=== PATIENT | female | born 1990 | race Caucasian/White ===

== ENCOUNTER 2021-02-19 10:12 | Emergency (ER) | payer MEDICAID, SELFPAY ==
[2021-02-19 10:13] VITALS: BP 146/74; PULSE 70; RESP 18; TEMP 36.6; O2SAT 99; BMI 31.4
--- NOTE | 2021-02-19 10:42 | CT_ITS ---
STUDY: CT BRAIN WITHOUT CONTRAST REASON FOR EXAM: Female, 30 years old. Dizziness RADIATION DOSAGE (If Supplied By Facility): CTDIvol = ( 44.99 ) mGy, DLP = ( 745.49 ) mGycm TECHNIQUE: Transaxial CT imaging of the brain was performed without administration of intravenous contrast material. Individualized dose optimization techniques were used for this CT. COMPARISON: No relevant priors. FINDINGS: Normal soft tissue structures. Normal calvarium. Normal size ventricles and extra-axial spaces for the patient''s age. Normal white matter tracts of the cerebral hemispheres. Normal basal ganglia and thalami. Normal brainstem. Normal cerebellum. There is no intracranial hemorrhage. There are no findings of an acute ischemic infarction. There is opacification of the right sphenoid sinus. Partial opacification of the posterior aspect of the right ethmoid sinus. CT/Brain/Head without Contrast IMPRESSION: Opacification of the right sphenoid sinus with partial opacification of the posterior aspect of the right ethmoid sinus. Electronically Signed: Bill Isaacs MD at 11:12 EDT , Service support ,
--- NOTE | 2021-02-19 10:44 | EX.ED.DYSGE1 ---
HPI History of Present Illness Chief Complaint: Dizziness Informant: patient Onset/Context/Timing Onset: Days Context: Gradual Onset Timing: Intermittent Current Severity: Mild Maximum Severity: Mild Narrative Narrative: 30-year-old female gave about 3 months ago. Uncomplicated vaginal delivery at 39 weeks. She has no past medical history. She has had a prior appendectomy, ACL repair and arm fracture repair. Both she and the baby have been doing well. She is a mother of 4 children home all 5 years or less. States she just feels tired and has been having some dizziness. Because of more lightheadedness. Not vertiginous nor any room spinning. No significant headache. No head trauma. Prior similar symptoms: No Recent Illness/Hospitalization: No PFSH PFSH Home Medications PNV cmb#95-ferrous fumarate-FA [] 1 tab PO DAILY 02/19/21 [History Last Taken Unknown] Allergy/AdvReac Type Severity Reaction Status Date / Time No Known Allergies Allergy Verified 02/19/21 10:15 Social History Smoking Status: Never smoker ROS ROS ED ROS Narrative Denies any recent illness. Review of Systems ROS Unobtainable: Denies due to encephalopathy Constitutional Constitutional ED: Denies chills or fever(s) Eyes Eyes: Denies blurry vision, change in vision or diplopia ENT ENT ED: Denies ear pain Cardiovascular Cardiovascular: Denies chest pain or palpitations Respiratory/Chest Respiratory/Chest: Denies cough or dyspnea Gastrointestinal Gastrointestinal: Denies abdominal pain, diarrhea, nausea or vomiting Genitourinary Genitourinary ED: Denies dysuria Musculoskeletal Musculoskeletal: Denies myalgias Integumentary Denies rash Neurologic Neurologic: Denies headache(s) Psychiatric Psychiatric: Denies depression Endocrine Endocrinology: Denies polyuria Allergic/Immunologic Allergic/Immunologic ED: Denies urticaria EXAM Physical Exam Narrative Exam Narrative: Young healthy female no acute distress. As a baby with her. Patient does not appear ill. Vital signs are stable and afebrile. HEENT exam normal. Moist mucous membranes. Normal speech. No facial droop. No trauma. TMs normal. Neck nontender no lymphadenopathy. Lungs clear to auscultation bilaterally. Heart regular rate and rhythm no murmur rate about 70. Abdomen soft nontender normal bowel sounds no peritoneal signs. Moving all 4 extremities. Neurovascular intact. No edema. Neurologically she is awake and alert with no focal motor or sensory deficits. NIH score is 0. 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 Fingertip to nose within normal limits bilaterally. She is able to do rapid hand movements equally and symmetrically normally. Dorsi and plantar flexion intact. She can raise either arm or either leg for more than 3 seconds without any drift. There is no signs of weakness. She has a negative Hallpike maneuver. Const Vital Signs: 02/19/21 10:13 02/19/21 10:33 Temperature 97.9 F Temperature Source Temporal Pulse Rate 70 Respiratory Rate 18 Respiratory Effort Normal Non-Labored Respiratory Pattern Normal Blood Pressure 146/74 H Blood Pressure Mean 98 Pulse Ox 99 Oxygen Delivery Method Room Air Positive well nourished and well developed General Appearance ED: well developed; Negative for pallor HEENT Reports TM's clear and moist mucous membranes Negative for trauma or tenderness Tympanic Membrane ED: Yes TM's clear Eyes PERRL and EOMs intact bilaterally General Eye ED: Negative for pale conjunctiva or scleral icterus Neck no lymphadenopathy, supple and no JVD General: Negative for tenderness Chest Wall inspection of chest normal and palpation of chest normal Resp normal respiratory effort and clear to auscultation bilaterally Cardio regular rate, regular rhythm, S1 normal heart sound, S2 normal heart sound and no murmurs GI normal to inspection, nondistended, normoactive bowel sounds, non-tender and non-distended Auscultation: normoactive bowel sounds Palpation: soft Back/Spine no CVA tenderness Extremity normal to inspection General Extremety ED: Negative for edema or tenderness General Extremity: Negative for edema Neuro oriented x3, CN's II-XII intact bilaterally and no sensory deficits noted Neuro Narrative: Completely normal neurologic exam. NIH score 0. Sensorium / Orientation: alert; Negative for orientation impaired, lethargic or stuporous Sensory Exam: No sensory level loss detected Motor Exam: strength 5/5 throughout; Negative for general weakness or strength abnormal Psych mental status grossly normal Skin no rashes or lesions noted, no wounds and skin turgor normal General Skin Exam: elasticity normal; Negative for jaundice or pallor Rashes: No rashes noted MDM MDM MDM Narrative Medical decision making narrative: 30-year-old female complaining some dizziness. Status post delivery 2 to 3 months ago. Uncomplicated. Clinically looks well. Has a normal exam. Thought she may have had some subjective weakness in her left arm which objectively she has a completely normal neurologic exam and no weakness. Will obtain a CAT scan of her brain. I do not think she needs any labs. After an unremarkable CAT scan and a normal repeat exam at 11:25 AM the patient be discharged home with outpatient follow-up. Radiography Diagnostic Testing: Radiology Impression Brain CT 02/19/21 10:42 IMPRESSION: Opacification of the right sphenoid sinus with partial opacification of the posterior aspect of the right ethmoid sinus. Electronically Signed: Bill Isaacs MD at 11:12 EDT , Service support , I reviewed the CAT scan and radiologist interpretation. Nothing concerning imaging. Repeat exam of the patient at 11:25 AM again was normal. She is a completely normal neurologic exam. Discharge Plan Triage Chief Complaint: Dizziness ED Provider: Woodrow Rowland Dx/Rx/DC Orders Clinical Impression: Dizziness Instructions: ED Dizziness, Uncertain Cause Prescriptions: No Action PNV cmb#95-ferrous fumarate-FA [] 28 mg iron- 800 mcg Tablet 1 tab PO DAILY RF: 0 Primary Care Provider: Jean-Paul Conde NP Referrals: Jean-Paul Conde CONSTRUCTION SAFETY MANAGER, CONSTRUCTION SAFETY MANAGER-C [Primary Care Provider] - 1 Week if not improving Activity Restrictions/Additional Instructions: Your exam is normal. Your CAT scan is unremarkable. Make sure you are getting plenty of rest. Follow-up with your primary care provider if not improving. Disposition Disposition: Home, Self Care
== END 2021-02-19 11:37 | disposition home or self-care (01) ==
PROVIDERS: Emergency Provider Emergency Medicine; PCP Nurse Practitioner Family
DX: R42 Dizziness and giddiness (principal)
CPT/HCPCS: 70450; 99282

== ENCOUNTER 2021-02-23 11:04 | Emergency (ER) | payer MEDICAID, SELFPAY ==
[2021-02-23 11:06] VITALS: BP 136/76; PULSE 76; RESP 16; TEMP 36.4; O2SAT 95; BMI 30.2
--- NOTE | 2021-02-23 11:53 | EKG12_ITS ---
Test Reason : DIZZINESS Blood Pressure : / mmHG Vent. Rate : 067 BPM Atrial Rate : 067 BPM P-R Int : 142 ms QRS Dur : 098 ms QT Int : 402 ms P-R-T Axes : 036 005 029 degrees QTc Int : 424 ms Normal sinus rhythm with sinus arrhythmia Normal ECG Confirmed by ALEX VALDIVIA, BUSHRA ([id number]), state editor MILE RODRIGES ([id number]) on 02/24/2021 2:21:31 PM Referred By: CARLITOS Confirmed By:BUSHRA JOHNSON MD
--- NOTE | 2021-02-23 11:53 | CT_ITS ---
EXAM: CT ANGIOGRAPHY HEAD AND NECK WITH INTRAVENOUS CONTRAST CLINICAL INDICATION: left sided paresthesias TECHNIQUE: [place]/head and neck CT angiography protocol performed with intravenous contrast. This CT exam was performed using one or more of the following dose reduction techniques: automated exposure control, adjustment of the mA and/or kV according to patient size, and/or use of iterative reconstruction technique. This report was created using [employer] report generation technology. MIP reconstructed images were created and reviewed. CONTRAST: IV 100mL Isovue-370 COMPARISON: None. FINDINGS: HEAD: RIGHT ANTERIOR CEREBRAL ARTERY: Unremarkable. No significant stenosis at the visualized segments. Anterior communicating artery is present. No aneurysm. RIGHT MIDDLE CEREBRAL ARTERY: Unremarkable. No significant stenosis at the visualized segments. No aneurysm. RIGHT POSTERIOR CEREBRAL ARTERY: Unremarkable. No occlusion or significant stenosis. No aneurysm. LEFT ANTERIOR CEREBRAL ARTERY: Unremarkable. No significant stenosis at the visualized segments. No aneurysm. LEFT MIDDLE CEREBRAL ARTERY: Unremarkable. No significant stenosis at the visualized segments. No aneurysm. LEFT POSTERIOR CEREBRAL ARTERY: Unremarkable. No occlusion or significant stenosis. No aneurysm. BASILAR ARTERY: Unremarkable. No significant stenosis. No aneurysm. GREAT VESSELS OF AORTIC ARCH: Unremarkable. Normal anatomy, patent. OTHER VASCULATURE: No vascular malformation. NECK: RIGHT COMMON CAROTID ARTERY: Unremarkable. No significant stenosis. No dissection or occlusion. RIGHT INTERNAL CAROTID ARTERY: Unremarkable. No significant stenosis. No dissection or occlusion. RIGHT EXTERNAL CAROTID ARTERY: Unremarkable. No occlusion. RIGHT VERTEBRAL ARTERY: Unremarkable. No significant stenosis. No dissection or occlusion. LEFT COMMON CAROTID ARTERY: Unremarkable. No significant stenosis. No dissection or occlusion. LEFT INTERNAL CAROTID ARTERY: Unremarkable. No significant stenosis. No dissection or occlusion. LEFT EXTERNAL CAROTID ARTERY: Unremarkable. No occlusion. LEFT VERTEBRAL ARTERY: Unremarkable. No significant stenosis. No dissection or occlusion. LUNG APICES: Unremarkable as visualized. SOFT TISSUES: Unremarkable. CAROTID STENOSIS REFERENCE USING NASCET CRITERIA: % ICA stenosis = (1 - narrowest ICA diameter/diameter of distal cervical ICA) x 100. Mild - <50% stenosis. Moderate - 50-69% stenosis. Severe - 70-94% stenosis. Near occlusion - 95-99% stenosis. Occluded - 100% stenosis. IMPRESSION: Negative CTA carotid and CTA brain. EXAM: CT HEAD WITHOUT INTRAVENOUS CONTRAST CLINICAL INDICATION: left sided paresthesias TECHNIQUE: Multiple axial images were obtained of the head without intravenous contrast. This CT exam was performed using one or more of the following dose reduction techniques: automated exposure control, adjustment of the mA and/or kV according to patient size, and/or use of iterative reconstruction technique. This report was created using Quantif[employer] report generation technology. Coronal and sagittal reformatted images were created and reviewed. CONTRAST: IV 100mL Isovue-370 COMPARISON: None. FINDINGS: BRAIN AND EXTRA-AXIAL SPACES: Unremarkable. No intra- or extra-axial hemorrhage. No evidence of acute infarct. No intracranial mass or mass effect. There is preservation of the leos/white matter interface. Posterior fossa structures are unremarkable. Ventricles are appropriate for age. No hydrocephalus. Basal cisterns are patent. BONES/JOINTS: Unremarkable. No discrete lytic or blastic abnormalities. SINUSES: Mild sphenoid mucosal thickening. MASTOID AIR CELLS: Unremarkable. Clear. ORBITS: Visualized globes, extraocular muscles, optic nerves and retrobulbar fat appear unremarkable. CT/CTA Head AND Neck W/ Contrast IMPRESSION: Negative head/brain CT without intravenous contrast. Electronically Signed: Bryce Ernandez MD ([place]) at 13:18 EDT , Service support ,
--- NOTE | 2021-02-23 11:58 | NURSING ---
NO OLD EKGS
[2021-02-23 12:25] LABS: Bacteria 0 SEEN /hpf (None Seen); Mucous, Urine 0 SEEN /hpf (<or=2+); Red Blood Cells-Urine 0 SEEN /hpf (0-5); White Blood Cells 0 SEEN /hpf (0-5)
[2021-02-23 12:26] VITALS: BP 106/84; BP 118/71; BP 120/76; PULSE 64; PULSE 68; PULSE 80
[2021-02-23 12:30] LABS: Absolute Lymphocyte Count 2.03 X10^3/uL (0.83-4.51); Basophil# 0.04 X10^3/uL; Basophil% 0.5 % (0-1); Color, Urine Yellow (Yellow); Eosinophil# 0.03 X10^3/uL; Eosinophils% 0.4 % (0-5); Glucose, Dipstick Normal (Normal); Hematocrit 42.3 % (37-47); Hemoglobin 14.5 g/dL (12.0-15.0); Ketone-Dipstick 5 mg/dl (Negative); Leukocyte Esterase-Dipstick Negative /ul (Negative); Lymphocyte # 2.03 X10^3/ul (0.83-4.51); Mean Corp Hgb Conc 34.3 g/dL (32-36); Mean Corpuscular Hgb 28.8 pg (27.0-32.0); Mean Corpuscular Volume 83.9 fL (81-99); Monocyte# 0.41 X10^3/uL; Monocyte% 5.5 % (0-10); NRBC Flagged by Analyzer 0 % (0-5); Neutrophil % 66.5 % (47-70); Nitrite-Dipstick Negative (Negative); Occult Blood-Urine Negative /ul (Negative); Platelet Count 257 K/mm3 (150-450); Protein-Dipstick Negative (Negative); RBC Distribution Width CV 12.3 % (11.6-14.6); RBC Distribution Width SD 37.3 fl (35.1-43.9); Red Blood Count 5.04 M/mm3 (4.2-5.4); Specific Gravity, Urine 1.005 (1.002-1.030); Urine Bilirubin Dipstick Negative (Negative); Urine Clarity Clear (Clear); Urine Urobilinogen Normal (Normal); White Blood Count 7.5 K/mm3 (4.4-11.0)
[2021-02-23 12:37] LABS: Internal QC Validated? YES +Cl - CLEAR BKGD; Squamous Epithelial Cells - UA 0-5 SEEN /hpf (5-10)
[2021-02-23] MEDS: 0.9% Normal Saline 1,000 ML 999 ML IV (12:37)
[2021-02-23 12:38] LABS: Pregnancy, Urine Negative Negative
[2021-02-23 12:54] LABS: ALB/GLOB Ratio 1.1 RATIO (0.9-2.4); AST(SGOT) 15 U/L (15-37); Alanine Aminotransfer ALT/SGPT 24 U/L (13-56); Albumin, Serum 4.1 g/dL (3.2-5.0); Alkaline Phosphatase 80 U/L (45-117); Anion Gap 9 (5-15); BUN 13 mg/dL (7-18); BUN/Creat Ratio 15.8 RATIO (10-20); Calcium,Total 8.7 mg/dL (8.5-10.1); Chloride 105 mmol/L (98-107); Creatinine, Serum 0.82 mg/dL (0.55-1.02); EST Glomerular Filtration Rate 88 mL/min (>60); Est Glom Filt Rate - Afr Amer 106 mL/min (>60); Estimated Creatinine Clearance 114.16 ml/min; Globulin 3.9 g/dL (2.2-4.2); Glucose 83 mg/dL (74-106); Potassium 3.8 mmol/L (3.5-5.1); Sodium Level 140 mmol/L (136-145); Thyroid Stim Hormone (TSH) 0.85 uIU/mL (0.358-3.74); Troponin-I HS < 3.0 pg/mL (3.0-53.7)
--- NOTE | 2021-02-23 12:54 | RAD_ITS ---
STUDY: X-RAY CHEST REASON FOR EXAM: Female, 30 years old. chest pressure TECHNIQUE: PA and lateral views of the chest. COMPARISON: None. FINDINGS: EKG leads project over the chest. The lungs are clear and expanded. There is no demonstrated pleural abnormality. Normal size heart. Normal mediastinum and elizabet. Normal visualized pulmonary arteries. Normal visualized aortic arch and descending thoracic aorta. Normal visualized thoracic spine. Normal visualized ribs, clavicles, and shoulders. There is no demonstrated abnormality of the visualized soft tissue structures of the upper abdomen. RAD/Chest PA and Lateral IMPRESSION: Normal x-ray examination of the chest. Electronically Signed: Bryce Ernandez MD ([place]oks) at 13:08 EDT , Service support ,
--- NOTE | 2021-02-23 14:27 | EX.ED.DYSGE1 ---
HPI History of Present Illness Chief Complaint: Dizziness Informant: patient Narrative Narrative: Patient is a 30-year-old female presenting with with constellation of headache, lightheadedness feeling she is going to pass out. She also feels that she has had paresthesias on the left side of her body. She does not feel that her fine motor is as accurate as it has been on the left. She knows that she has had pressure in her head. She has had floaters especially in her left eye. She notes she gets intermittent chest tightness and feeling that her heart is racing. She denies shortness of breath or chest pain. She denies any swelling of her legs. She notes that she has a pins and needle sensation in her left arm and wrist. Her symptoms overall are worse today so she came to the emergency room. This been going for 2 weeks. She was seen 1 week ago for similar symptoms at that time she had a head CT which is negative and she was discharged home. She is not followed up with her primary care doctor. She denies any fever or chills. Denies any sick contacts. She is currently breast-feeding and 3 months . She does have 4 children on the age of 5 at home. She states she has been more tired than normal but states that she only waking up once a night for her . No other complaints at this time. PFSH PFSH no medical history Home Medications PNV cmb#95-ferrous fumarate-FA [] 1 tab PO DAILY 02/19/21 [History Last Taken Unknown] Allergy/AdvReac Type Severity Reaction Status Date / Time No Known Allergies Allergy Verified 02/23/21 11:05 Surgical History Hx of appendectomy S/P ACL repair Social History Smoking Status: Never smoker ROS ROS ED Constitutional Constitutional ED: Reports other Details: Fatigue ; Denies chills, fever(s) or sweats Eyes Eyes: Reports other Details: Floaters?more so in the left eye ; Denies blurry vision or change in vision ENT ENT ED: Denies ear pain, rhinorrhea or sore throat Cardiovascular Cardiovascular: Reports racing heartbeat and other Details: Chest pressure ; Denies chest pain or palpitations Respiratory/Chest Respiratory/Chest: Denies cough or dyspnea Gastrointestinal Gastrointestinal: Denies abdominal pain, diarrhea, nausea or vomiting Genitourinary Genitourinary ED: Denies dysuria or hematuria Musculoskeletal Musculoskeletal: Denies arthralgias, myalgias or neck pain Integumentary Denies rash Neurologic Neurologic: Reports headache(s), paresthesias LUE and LLE and weakness Psychiatric Psychiatric: Denies anxiety or depression EXAM Physical Exam Const Vital Signs: 02/23/21 11:06 02/23/21 12:26 02/23/21 12:28 Temperature 97.5 F L Temperature Source Temporal Pulse Rate 76 Pulse Rate [Lying] 64 Pulse Rate [Sitting] 68 Pulse Rate [Standing] 80 Respiratory Rate 16 Respiratory Effort Normal Respiratory Pattern Normal Blood Pressure 136/76 H Blood Pressure [Lying] 118/71 Blood Pressure [Sitting] 120/76 Blood Pressure [Standing] 106/84 H Blood Pressure Mean 96 Blood Pressure Mean [Lying] 86 Blood Pressure Mean [Sitting] 90 Blood Pressure Mean [Standing] 91 Pulse Ox 95 Oxygen Delivery Method Room Air Positive well nourished and well developed General Appearance ED: well developed HEENT Reports TM's clear and moist mucous membranes Tympanic Membrane ED: Yes TM's clear Eyes PERRL and EOMs intact bilaterally Neck no lymphadenopathy, supple and no JVD General: other No meningeal signs Chest Wall inspection of chest normal Resp normal respiratory effort and clear to auscultation bilaterally Cardio regular rate, regular rhythm and no murmurs GI normal to inspection, nondistended, normoactive bowel sounds Back/Spine no CVA tenderness Extremity normal to inspection General Extremety ED: Negative for edema or tenderness General Extremity: Negative for edema Neuro oriented x3 and CN's II-XII intact bilaterally Neuro Narrative: Normal [id number]. Normal gait. Sensation intact to light touch however she has subjective paresthesias on the left face and the left upper and lower extremity compared to the right. Normal salesman/owner strength. Sensorium / Orientation: alert Motor Exam: strength 5/5 throughout; Negative for general weakness Psych mental status grossly normal Skin no rashes or lesions noted MDM MDM MDM Narrative Medical decision making narrative: Patient is evaluated for consultation symptoms including lightheadedness, near syncope and left-sided paresthesias. She appears nontoxic in no acute distress. Her NIH is 0. Her neurologic exam is only significant for subjective paresthesias on the left side. She does not have any obvious focal deficits. Given that she has had the symptoms for 2 weeks and she had normal head CT last week I did obtain a CTA to make sure she did not have dissection especially associated with the recent childbirth. CT does not show any acute process. High sensitive troponin EKG are normal. Patient is not have any arrhythmia in the emergency room. Her CBC is normal. Her CMP is normal. TSH is normal. Urine is negative and there is no signs of UTI. She is a 5+ ketones in her urine. Patient is given a liter of IV fluid in the emergency room. Orthostatics are normal. Patient is counseled that the cause of her symptoms is not clear however she would benefit from further outpatient follow-up. She is encouraged to follow-up with her primary care doctor. She has question if she requires an MRI. Patient is counseled that it is possible that she will require an MRI and MS is on the differential given her vague neurologic symptoms and age however this needs to be followed up with her primary care doctor. She is also counseled that she might need further cardiac evaluation given her episodes of heart racing. Patient has suspected PE and patient is PE RC negative. Do not suspect a PE as the cause of her symptoms. She verbalizes agreement understanding with this plan. She is discharged home in stable condition. She is counseled on return precautions. Lab Data Labs: Laboratory Results - last 24 hr 02/23/21 02/23/21 02/23/21 12:20 12:20 12:20 WBC 7.5 RBC 5.04 Hgb 14.5 Hct 42.3 MCV 83.9 MCH 28.8 MCHC 34.3 RDW Std Deviation 37.3 RDW Coeff of Geovanny 12.3 Plt Count 257 MPV 9.0 Immature Gran % (Auto) 0.100 Neut % (Auto) 66.5 Lymph % (Auto) 27.0 [place] % (Auto) 5.5 Eos % (Auto) 0.4 Baso % (Auto) 0.5 Absolute Neuts (auto) 5.0 Absolute Lymphs (auto) 2.03 Nucleated RBC % 0 Sodium 140 Potassium 3.8 Chloride 105 Carbon Dioxide 26.0 Anion Gap 9 BUN 13 Creatinine 0.82 Estim Creat Clear Calc 114.16 Est GFR (MDRD) Af Amer 106 Est GFR (MDRD) Non-Af 88 BUN/Creatinine Ratio 15.8 Glucose 83 Calcium 8.7 Total Bilirubin 0.90 AST 15 ALT 24 Alkaline Phosphatase 80 Troponin I High Sens < 3.0 L Total Protein 8.0 Albumin 4.1 Globulin 3.9 Albumin/Globulin Ratio 1.1 TSH 0.85 Urine Color Yellow Urine Clarity Clear Urine pH 7.0 Ur Specific [place] 1.005 Urine Protein Negative Urine Glucose (UA) Normal Urine Ketones 5 H Urine Occult Blood Negative Urine Nitrite Negative Urine Bilirubin Negative Urine Urobilinogen Normal Ur Leukocyte Esterase Negative Urine RBC 0 SEEN Urine WBC 0 SEEN Ur Squamous Epith Cells 0-5 SEEN Urine Bacteria 0 SEEN Urine Mucus 0 SEEN Urine Test Negative Radiography Chest X-Ray - ED: 2 View, Read by ED Physician, Read by Radiologist and Normal Diagnostic Testing: Radiology Impression Head/Neck CTA 02/23/21 11:53 IMPRESSION: Negative head/brain CT without intravenous contrast. Electronically Signed: Bryce Ernandez MD ([place]) at 13:18 EDT , Service support , Chest X-Ray 02/23/21 12:54 IMPRESSION: Normal x-ray examination of the chest. Electronically Signed: Bryce Ernandez MD ([place]oks) at 13:08 EDT , Service support , Rhythm Strip Rhythm Strip: Sinus Rhythm Rate: 67 Ectopy: None EKG Initial EKG: Attestation: I personally reviewed and interpreted this EKG as follows: Interpretation: Sinus Rhythm Comments: Normal sinus rhythm at a rate of 67 Normal axis Normal intervals Normal ST segments Discharge Plan Triage Chief Complaint: Dizziness ED Provider: Navya Ndiaye Dx/Rx/DC Orders Clinical Impression: Dizziness, Paresthesia Instructions: ED Near-Fainting, Uncertain Cause, ED Paraesthesias Prescriptions: No Action PNV cmb#95-ferrous fumarate-FA [] 28 mg iron- 800 mcg Tablet 1 tab PO DAILY RF: 0 Primary Care Provider: Jean-Paul Conde NP Referrals: Jean-Paul Conde AGRICULTURAL SERVICE TECHNICIAN, AGRICULTURAL SERVICE TECHNICIAN-C [Primary Care Provider] - Disposition Disposition: Home, Self Care
[2021-02-23 14:50] VITALS: PULSE 61
== END 2021-02-23 14:50 | disposition home or self-care (01) ==
PROVIDERS: Emergency Provider Emergency Medicine; PCP Nurse Practitioner Family
DX: R42 Dizziness and giddiness (principal); R20.2 Paresthesia of skin
CPT/HCPCS: 70496; 70498; 71046; 80053; 81001; 81025; 84443; 84484; 85025; 93005; 96360; 96361; 99284; J7030; Q9967

== ENCOUNTER → 2021-07-30 07:28 | Outpatient (CLI) | payer SELFPAY ==
--- NOTE | 2021-07-30 07:36 | CT_ITS ---
STUDY: CT MAXILLOFACIAL SINUSES REASON FOR EXAM: Female, 30 years old. LEFT FACIAL PAIN RADIATION DOSAGE (If Supplied By Facility): CTDIvol = ( 33.06 ) mGy, DLP = ( 800.79 ) mGycm TECHNIQUE: The patient was scanned in a multi detector CT scanner. High resolution axial imaging was performed without the administration of intravenous contrast material. Sagittal and coronal images were reconstructed. Individualized dose optimization techniques were used for this CT. COMPARISON: Comparison is made with prior CT scan of the brain dated 02/19/2021. FINDINGS: FRONTAL SINUSES: Normal aeration, without mucosal inflammatory disease. ETHMOIDAL SINUSES: Normal aeration, without mucosal inflammatory disease. MAXILLARY SINUSES: Normal aeration, without mucosal inflammatory disease. SPHENOIDAL SINUSES: Normal aeration, without mucosal inflammatory disease. There is patency of the bilateral maxillary infundibuli with normal uncinate processes, ethmoid bullae, and hiatus semilunaris. Normal bilateral middle turbinates. There is hypertrophy of the bilateral inferior nasal turbinates. Normal midline nasal septum. There is patency of the bilateral nasal airways. The visualized osseous structures are normal. The visualized bilateral orbital contents are normal. CT/Sinus/Facial Bone IMPRESSION: Normal CT examination of the maxillofacial sinuses. Electronically Signed: Bill Isaacs MD at 9:42 EST , Service support ,
== END ==
PROVIDERS: PCP Nurse Practitioner Family; Referring Provider Otolaryngology; Visit Provider Otolaryngology
DX: G50.1 Atypical facial pain (principal)
CPT/HCPCS: 70486

== ENCOUNTER 2021-11-17 06:28 | Outpatient (CLI) | payer MEDICAID, SELFPAY ==
--- NOTE | 2021-11-17 06:29 | MRI_ITS ---
STUDY: EXAMINATION - MRV BRAIN WITHOUT CONTRAST REASON FOR EXAM: Female, 31 years old. migraine, atypical facial pain TECHNIQUE: 3D [id number] (TOF) imaging was performed in a [facility] MRI scanner. COMPARISON: MRI of the brain dated November 17, 2021. FINDINGS: Normal flow within the superior sagittal sinus. Normal flow within the superficial cortical veins. Normal flow within the paired internal cerebral veins, vein of Ronnie and straight sinus. Normal flow within the bilateral transverse and sigmoid sinuses. Normal flow within the bilateral jugular bulbs. MRI/MRV Head Without Contrast IMPRESSION: Normal unenhanced MRV of the brain. Electronically Signed: Jeffrey Cross MD at 13:41 EDT ,
--- NOTE | 2021-11-17 06:29 | MRI_ITS ---
STUDY: MRI BRAIN WITH AND WITHOUT CONTRAST REASON FOR EXAM: Female, 31 years old. migraine, atypical facial pain- LEFT SIDE TECHNIQUE: Standardized multiplanar fat and water weighted pulse sequences were obtained. 19ML IV DOTAREM was administered for the contrast portion of the examination. COMPARISON: Head CT dated February 19, 2021 FINDINGS: Normal size of the ventricles and extra-axial spaces for the patient''s age. Normal white matter tracts of the supratentorial brain. There are no white matter hyperintensities. Specifically, there are no focal areas of white matter gliosis which are occasionally associated with vasospastic migraine headaches. There are no demyelinating plagues of the supratentorial brain, brainstem or cerebellum. There are no findings suspicious for multiple sclerosis (MS). There is no evidence for recent intracranial ischemia or other cause of cytotoxic edema on diffusion weighted imaging (DWI). Normal bilateral basal ganglia. Normal thalami. There is no extra-axial fluid accumulation. Normal flow voids within the major intracranial circulation suggesting patency by spin echo criteria. Normal venous enhancement. There is no enhancing intra-axial or extra-axial abnormality. No abnormal enhancement of the meninges or dura. No suspicious lesions are present. Normal sella turcica, pituitary gland, infundibular stalk, optic chiasm and hypothalamus. Normal tectal plate and pineal gland. Normal midbrain, [place] and medulla. Normal cerebellum. Normal basal cisterns. Normal bilateral temporal bones. Normal bilateral internal auditory canals. No demonstrated orbital abnormality, within the constraints of a routine brain study. Normal visualized paranasal sinuses. Normal calvarium and skull base. Normal visualized soft tissue structures. Normal visualized upper cervical spine. MRI/Brain W/WO Contrast IMPRESSION: 1. Normal unenhanced and enhanced MRI of the brain. 2. No signal abnormality is present. Electronically Signed: Jeffrey Cross MD at 13:37 EDT ,
== END 2021-11-17 23:59 | disposition home or self-care (01) ==
LOC: MRI 06:29
PROVIDERS: PCP Nurse Practitioner Family; Referring Provider Psychiatry & Neurology Neurology; Visit Provider Psychiatry & Neurology Neurology
DX: G43.909 Migraine, unspecified, not intractable, without status migrainosus (principal); G50.1 Atypical facial pain
CPT/HCPCS: 70544; 70553; A9575

== ENCOUNTER 2023-01-12 12:30 | Outpatient (RCR) | payer MEDICAID, SELFPAY ==
--- NOTE | 2022-11-17 10:16 | HP.PTEVAL ---
Patient's Visit Information FIDELIA BLAS is a 32 year old F referred to Physical Therapy by FRANDY RAWLS with a diagnosis of Trauma to perineum and vulva.. Date of Evaluation: 11/17/22 Physical Therapist: Ashley Foster PT, Cert MDT - Visit Plan Frequency: 1x/Week Duration: 8-12 WKS Plan: *CHECK AUTH: RECORD # OF VISITS APPROVED AND EXPIRATION DATE. CHECK CODES APPROVED WITH POC*. PELVIC FLOOR STRENGTHENING. URINARY STRESS INCONTINENCE EDUCATION. HEALTHY BLADDER HABIT EDUCATION. TRAINING IN COORDINATION OF PELVIC FLOOR MUSCULATURE WITH HIP AND CORE (TRANSVERSE ABDOMINUS) MUSCULATURE. POSTURE CORRECTION/STRENGTHENING. CORE STRENGTHENING. BERTHA LE ROM, STRETCHING AND STRENGTHENING. TRAINING IN ABDOMINAL CAVITY PRESSURE MGMT AND PROPER BODY MECHANICS WITH ADL'S. - Subjective Work/Leisure: STAY AT HOME MOM OF 5 CHILDREN AGES 7, 5, 3, 2 AND 7 WKS. LIVES WITH . Present symptoms: PATIENT REPORTS AT HER 6 WK FOLLOW UP SHE WAS DIAGNOSED WITH DIASTASIS RECTI AND INCONTINENCE. SHE REPORTS HER ABDOMINAL CAVITY GETS SO TIRED BY THE END OF THE DAY. CORE GETS VERY TIRED. Present since: INCONTINENCE STARTED DURING MOST RECENT . Pain Scale: NO PAIN. Is it getting better, worse or staying the same: STAYING THE SAME. Commenced as a result of: . Disturbed sleep: URINATING 0-1 TIMES A NIGHT. Previous history/Previous treatment: NONE. Treatment this episode: NONE. Coughing/sneezing/straining: URINE LEAKING IF FULL BLADDER WITH SNEEZING. Gait: NORMAL. How long can you delay the need to urinate: 30-60 MINUTES. Prolapse (Falling out feeling): NO. Frequency of Urination: ABOUT EVERY 2 HOURS. Ability to stop urine flow: YES. Ability to initiate urine stream: YES. Dyspareunia: NO. Bowel Incontinence: NO. Accidents: NO. Unexplained weight loss: NO. Imaging: NO. PMH/Recent major surgery: R KNEE ACL REPAIR. H/O MIGRAINES. OTHER: CURRENTLY BREAST FEEDING. TYPICALLY WALKS FOR EX AND LIFTS LIGHT WEIGHTS AT HOME. - Objective Sitting/Standing Posture: POOR. Active Correction of posture: GOOD - NO PAIN AND GOOD CORRECTION WITH CUEING. Other Observations: INDEP GAIT AND TRANSFERS. Sensory deficit: BERTHA LE LIGHT TOUCH SENSATION GROSSLY INTACT AND SYMMETRICAL. ROM deficit: BERTHA HIP ADDUCTOR AND GASTROC TIGHTNESS. Motor deficit: BERTHA LE'S GROSSLY 5/5 WITH MMT'ING EXCEPT HIPS 4-/5. Dural Signs: NEGATIVE BERTHA LE'S. Lumbar mvmt loss: flex - NIL. ext - MIN. R SG - MIN. L SG - MIN. Core strength: POOR. 2 FINGER WIDTH DIASTASIS RECTI. Palpation: NO INTERNAL PELVIC EXAM. PATIENT COMMUNICATES A GOOD UNDERSTANDING OF HOW TO CONTRACT PELVIC FLOOR. FUNCTIONAL SCREEN: Incontinence Impact Questionnaire Score: 15. Urogenital Distress Inventory Score: 3 - Goals Goal 1:: PATIENT WILL DEMONSTRATE/COMMUNICATE 10 CONSISTENT AND CONSECUTIVE 10 SECOND PELVIC FLOOR MUSCLE CONTRACTIONS TO DEMONSTRATE IMPROVED PELVIC FLOOR ENDURANCE. Goal Time Frame: 8-12 Weeks Goal 2:: DECREASE URINARY LEAKING EPISODES Goal Time Frame: 6-8 Weeks Goal 3:: DEVELOP HEALTHY FLUID INTAKE HABITS WITH FLUID INTAKE OF ? BODY WEIGHT IN OUNCES PER DAY AND 2/3 BEING WATER. Goal Time Frame: 4-6 Weeks Goal 4:: NORMALIZE VOIDING FREQUENCEY TO EVERY 3-4 HOURS. Goal Time Frame: 4-6 Weeks Goal 5:: INCREASE CORE STRENGTH TO EASE ADL'S. Goal Time Frame: 6-8 Weeks Goal 6:: PATIENT WILL BE INDEP WITH A HEP/HOME INSTRUCTIONS FOR CONTINUED IMPROVEMENT ONCE FORMAL PHYSICAL THERAPY CONCLUDES. Goal Time Frame: 8-12 Weeks - Anticipated Interventions Patient/Client Instruction: Educate patient on: Condition, Plan of Care, Risk Factors For the Purpose of:: To improve self management Therapeutic Exercise to Include: Strength training, Endurance training, Body mechanics, Postural training, Flexibilty training, Neuromotor development, Dynamic Lumbar Stabilization For the Purpose of:: To improve muscle performance and motor function, To increase tolerance to activity/condition/position, To improve ability of physical actions for home/community/work/leisure Thank you for the opportunity to evaluate your patient. For Medicare and Medicare HMO plans, please review the plan of care and approve it. It will need to be FAXED BACK to us at [phone] for Medicare purposes. For Medicare only, by signing this I certify the plan of care. Please let me know if there are questions or concerns regarding this plan of care. Physician Signature: Date:
--- NOTE | 2023-01-12 12:53 | HP.PTDCSUM ---
It has been my pleasure to treat FIDELIA BLAS referred by FRANDY RAWLS, with the diagnosis of Trauma to perineum and vulva. for a total of 7 visit(s). Discharge Date: 01/12/23 Please see the following information for a summary of their discharge status. Subjective: PATIENT REPORTS COMPLIANCE WITH HEP. STATES SHE IS DOING GOOD AND IS SYMPTOM FREE. % Improvement: 90 Objective/Function: ALL GOALS MET. FUNCTIONAL SCREEN: Incontinence Impact Questionnaire Score: 0. Urogenital Distress Inventory Score: 2 Goal 1:: PATIENT WILL DEMONSTRATE/COMMUNICATE 10 CONSISTENT AND CONSECUTIVE 10 SECOND PELVIC FLOOR MUSCLE CONTRACTIONS TO DEMONSTRATE IMPROVED PELVIC FLOOR ENDURANCE. Goal Progress: Goal Met Goal 2:: DECREASE URINARY LEAKING EPISODES Goal Progress: Goal Met Goal 3:: DEVELOP HEALTHY FLUID INTAKE HABITS WITH FLUID INTAKE OF ? BODY WEIGHT IN OUNCES PER DAY AND 2/3 BEING WATER. Goal Progress: Goal Met Goal 4:: NORMALIZE VOIDING FREQUENCEY TO EVERY 3-4 HOURS. Goal Progress: Goal Met Goal 5:: INCREASE CORE STRENGTH TO EASE ADL'S. Goal Progress: Goal Met Goal 6:: PATIENT WILL BE INDEP WITH A HEP/HOME INSTRUCTIONS FOR CONTINUED IMPROVEMENT ONCE FORMAL PHYSICAL THERAPY CONCLUDES. Goal Progress: Goal Met Plan: D/C. PATIENT AGREEABLE. If there are questions or concerns regarding this patient's physical therapy, please feel free to call me at [phone]. Thank you for the referral of this patient. Sincerely, Ashley Foster, PT, Cert MDT
== END 2023-01-12 19:00 | disposition home or self-care (01) ==
LOC: PT 12:30
PROVIDERS: PCP Nurse Practitioner Family; Referring Provider Nurse Practitioner Women's Health; Visit Provider Nurse Practitioner Women's Health
DX: O71.82 Other specified trauma to perineum and vulva (principal); Z39.2 Encounter for routine postpartum follow-up
CPT/HCPCS: 97162; 97530